=== PATIENT | male | born 1955 | race Caucasian/White ===

== ENCOUNTER → 2018-05-19 10:32 | Outpatient (CLI) | payer OTHER, SELFPAY ==
--- NOTE | 2018-05-19 10:38 | CT_ITS ---
CT chest w con INDICATION: ITS.REASON: WGT LOSS, TOB USE, COUGH ORDERING PHYSICIAN: Go Cedillo MD PATIENT AGE: 63 years COMPARISON: 07/08/2012 ( TECHNIQUE: Axial images obtained with sagittal and coronal reformats. All CT scans at the facility use one or more dose reduction, viz: automated exposure control, ma/kV adjustment per patient size (including targeted exams where dose is matched to indication, i.e. head), or iterative reconstruction technique. FINDINGS: The lung morgan are slightly hyperexpanded but appear clear of infiltrate. Cardiac size is normal and the vascularity is normal. There are calcified bilateral hilar and subcarinal nodes. There is a calcified granuloma right perihilar region and right lower lobe. There is no pleural fluid. There are mild degenerative changes lower thoracic spine. IMPRESSION: Mild COPD and evidence of old granulomatous disease
--- NOTE | 2018-05-19 10:38 | CT_ITS ---
CT abdomen pelvis w con CLINICAL HISTORY: Weight loss, hematuria, smoking history TECHNIQUE: Axial images obtained with sagittal and coronal reformats. All CT scans at the facility use one or more dose reduction, viz: automated exposure control, ma/kV adjustment per patient size (including targeted exams where dose is matched to indication, i.e. head), or iterative reconstruction technique. COMPARISON: CT scan abdomen and pelvis 07/20/2011 PROCEDURE: Oral Contrast:None IV Contrast: 75 ml IV Isovue 170 was injected intravenously. FINDINGS: Lung bases: Clear, is no pleural fluid ABDOMEN: Liver: No masses or biliary dilatation. Gallbladder: Nondistended. No radio opaque stones. Pancreas: No masses or peripancreatic fluid collections. Spleen: Unremarkable. Adrenals: Unremarkable Kidneys/ureters: The kidneys are normal in size and show symmetrical function. There is a benign-appearing cortical cyst upper pole left kidney measuring 3.2 x 3.7 3.8 cm. There is a 2.6 x 2.7 cm parapelvic cyst left kidney as well. There is a 2 to 3 mm nontracking calculus midpole left kidney and there are 2 calcifications 3 to 5 mm in size and lower pole calyx of the left kidney. There is a 2 to 3 mm nontracking calculus lower pole right kidney. There is no hydroureter on either side and no ureteral calculi identified. Stomach bowel: The stomach and small bowel appear normal. The appendix is normal. There is large amount stool in ascending and transverse colon. There is mild diverticulosis of the sigmoid colon without evidence of diverticulitis. Peritoneum: No abnormal fluid collections. No obvious inflammatory changes. Lymph nodes: No enlarged lymph nodes apparent. Vasculature: There is minimal ultrasound sclerotic calcification of the lower abdominal aorta but there is no aneurysm. Bones: There is mild degenerative disc disease at the L3-4 and L4-5 levels. There is first-degree spondylolisthesis L4 on L5 with bilateral pars defects seen at the L4-5 level. PELVIS: Reproductive: Unremarkable , The prostate is slightly enlarged Bladder: Partially decompressed Appendix: Unremarkable. No distention or periappendiceal phlegmonous change. IMPRESSION: Bilateral nonobstructing renal calculi, benign-appearing cortical cyst and parapelvic cysts left kidney 2. Mild diverticulosis sigmoid colon without diverticulitis. 3. Mild to moderate enlargement of the prostate gland
== END ==
PROVIDERS: PCP Internal Medicine Adolescent Medicine; Visit Provider Internal Medicine Adolescent Medicine
DX: R31.0 Gross hematuria (principal); R05 Cough; R63.4 Abnormal weight loss; Z72.0 Tobacco use
CPT/HCPCS: 71260; 74177; Q9967

== ENCOUNTER → 2021-03-22 17:09 | Outpatient (CLI) | payer MEDICARE, BC, SELFPAY ==
[2021-03-22 17:53] LABS: Basophils # 0.1 K/mm3 (0-0.2); Basophils % 0.9 % (0.1-2.0); Eosinophils # 0.5 K/mm3 (0.0-0.4); Eosinophils % 5.9 % (0.1-12.0); Hematocrit 47.2 % (42.0-52.0); Hemoglobin 14.5 g/dL (14.1-18.0); Lymphocytes # 2.1 K/mm3 (0.7-4.5); Lymphocytes % 27.7 % (10-50); Mean Corpuscular HGB Conc 30.7 g/dL (31.8-35.4); Mean Corpuscular Hemoglobin 30.8 pg (27.0-31.2); Mean Corpuscular Volume 100.1 fl (80-94); Mean Platelet Volume 9.8 fl (7.4-10.4); Monocytes # 0.6 K/mm3 (0.1-1.0); Monocytes % 8.1 % (1.7-9.3); Neutrophils # 4.4 K/mm3 (1.8-7.8); Neutrophils % 57.3 % (37.0-80.0); Platelet Count 280 K/mm3 (142-424); Red Blood Count 4.71 M/mm3 (4.60-6.20); Red Cell Distribution Width 13.9 % (11.5-17.5); White Blood Count 7.7 K/mm3 (4.8-10.8)
[2021-03-22 18:32] LABS: Alanine Aminotransferase 22 U/L (12-78); Albumin/Globulin Ratio 1.6 (1.1-1.8); Alkaline Phosphatase 50 U/L (38-126); Anion Gap 10.7 mEq/L (5-15); Aspartate Amino Transferase 35 U/L (17-59); Bilirubin,Total 0.2 mg/dl (0.2-1.3); Blood Urea Nitrogen 17 mg/dl (9-20); Calcium 9.2 mg/dl (8.4-10.2); Carbon Dioxide 30 mmol/L (22.0-30.0); Chloride 107 mmol/L (98-107); Chol/HDL Ratio 3.3 (1-3.5); Cholesterol 157 mg/dl (140-200); Estimated Glomerular Filt Rate 55 ml/min (>60); GFR (African American) 67 ML/MIN (>60); Globulin 2.5 g/dL (1.3-3.2); Glucose 103 mg/dl (74-100); HDL Cholesterol 48 mg/dl (40-60); Potassium 4.7 mmoL/L (3.5-5.1); Sodium 143 mmol/L (136-145); Total Protein,Serum 6.5 g/dl (6.3-8.2); Triglycerides 88 mg/dl (30-150); VLDL Cholesterol 18 mg/dL (0-40)
[2021-03-22 18:44] LABS: Direct LDL Cholesterol 99.74 mg/dL (100-129)
[2021-03-22 19:33] LABS: Vitamin B12 > 1000 pg/mL (239-931)
[2021-03-22 19:48] LABS: Hemoglobin A1C 5.7 % (4.0-6.0)
[2021-03-22 20:01] LABS: 25-OH Vitamin D, Total 70.3 ng/mL (30-100)
== END ==
PROVIDERS: Visit Provider Nurse Practitioner Family
DX: E78.2 Mixed hyperlipidemia (principal); R73.03 Prediabetes; E53.8 Deficiency of other specified B group vitamins; E55.9 Vitamin D deficiency, unspecified
CPT/HCPCS: 80053; 80061; 82306; 82607; 83036; 85025